=== PATIENT | female | born 1980 | race Caucasian/White ===

== ENCOUNTER 2017-04-14 13:16 | Emergency (ER) | payer SELFPAY ==
--- NOTE | 2017-04-14 13:45 | OBHP ---
Datetime: 04/14/2017 13:41 IP Adm Impression: , intrauterine IP Chief Complaint Other: pelvic pressure Admit Comment, IP Provider: at 32+weeks came from [place] to deliver baby in [facility].pt went to [facility] they would not accept her.c/o pelvic pressure, no vb, lof,+fm, no ctxs obhx 1 x c/s, 1 x sab pmh den med pnv all nkda psh c/s soch den ve closed a/p at 32+weeks r/o uti ua cont latosha and efm cont close observation Pelvic Type - PN: Adequate Extremities - PN: Normal Abdomen - PN: Normal Back - PN: Normal Breast - PN: Not Done Lungs - PN: Normal Heart - PN: Normal Thyroid - PN: Not Done Neurologic - PN: Normal HEENT - PN: Normal General - PN: Normal FHR - Baseline A Provider: 130 Contraction Comments Provider: none Comments, ACOG Physical Exam: gravid,no tender ext no edema ve closed NICHD Variability Prov Fetus A: Moderate 6-25bpm NICHD Accel Fetus A IP Provider: [id number] FHR Category Provider Fetus A: Category I Dilatation, Provider: 0 Effacement, Provider: 0 Station, Provider: -3 Genitourinary Exam: Normal DTRs - PN: Normal
[2017-04-14 14:23] LABS: SQUAMOUS EPITHIAL 26 /hpf (0-5); URINE BACTERIA RARE (<OCC); URINE BILIRUBIN 1+ (NEGATIVE); URINE BLOOD NEGATIVE (NEGATIVE); URINE CALCIUM OXALATE CRYSTALS FEW /hpf (<OCC); URINE CLARITY Hazy (Clear); URINE COLOR Amber (YELLOW); URINE GLUCOSE (UA) NORMAL (Normal); URINE LEUKOCYTE ESTERASE 2+ Leu/uL (Negative); URINE NITRATE NEGATIVE (NEGATIVE); URINE PROTEIN 2+ mg/dL (NEGATIVE)
--- NOTE | 2017-04-14 14:30 | OBDCSUM ---
Datetime: 04/14/2017 14:28 Discharged to, Provider: Home Follow up at, Provider: 1-2 days Follow up in weeks, Provider: clinic Discharge Comment, Provider: dc home keflex macrobid 100 mg bid x 7 days ptl given po hyration f/u in [facility] Discharge Diagnosis Prov Other: 32weeks nst uti
--- NOTE | 2017-04-14 14:30 | OBHP ---
Datetime: 04/14/2017 14:26 Admit Comment, IP Provider: pt was seen at bed side. feels ok ua 2+le plan dc home keflex macrobid 100 mg bid x 7 days ptl given po hyration f/u in [facility] clinic FHR - Baseline A Provider: 130 Contraction Comments Provider: none Vital Signs Provider: Reviewed; Within Normal Limits NICHD Variability Prov Fetus A: Moderate 6-25bpm NICHD Accel Fetus A IP Provider: 15X15 FHR Category Provider Fetus A: Category I
== END 2017-04-14 14:28 | disposition home or self-care (01) ==
LOC: C.EROB 13:16
DX: O23.43 Unspecified infection of urinary tract in pregnancy, third trimester (principal); Z3A.32 32 weeks gestation of pregnancy